=== PATIENT | female | born 1960 | race Caucasian/White ===

== ENCOUNTER 2022-08-14 06:20 | Observation (INO) ==
--- NOTE | 2022-06-04 09:46 | PAT Medication Instructions ---
Medication Instructions Date of Service June 04, 2022 Home Medications acetaminophen 650 mg tablet,extended release (Tylenol Arthritis Pain) 650 mg PO Q12H cholecalciferol (vitamin D3) 125 mcg (5,000 unit) capsule 125 mcg PO QAM levothyroxine 175 mcg capsule 175 mcg PO QAM lisinopril 20 mg tablet 20 mg PO QAM multivitamin (Daily Multi-Vitamin tablet) 1 tab PO QAM tramadol 50 mg tablet 50 mg PO Q8H PRN Pain fluoxetine 20 mg tablet 20 mg PO QAM gabapentin 300 mg tablet 300 mg PO TID DO NOT take the morning of surgery cholecalciferol (vitamin D3) 125 mcg (5,000 unit) capsule 125 mcg PO QAM lisinopril 20 mg tablet 20 mg PO QAM multivitamin (Daily Multi-Vitamin tablet) 1 tab PO QAM Take morning of surgery With a small sip of water, OTHERWISE NOTHING TO EAT OR DRINK AFTER MIDNIGHT: acetaminophen 650 mg tablet,extended release (Tylenol Arthritis Pain) 650 mg PO Q12H levothyroxine 175 mcg capsule 175 mcg PO QAM tramadol 50 mg tablet 50 mg PO Q8H PRN Pain (if needed) fluoxetine 20 mg tablet 20 mg PO QAM gabapentin 300 mg tablet 300 mg PO TID Take evening before surgery acetaminophen 650 mg tablet,extended release (Tylenol Arthritis Pain) 650 mg PO Q12H tramadol 50 mg tablet 50 mg PO Q8H PRN Pain (if needed) gabapentin 300 mg tablet 300 mg PO TID Other Notes If you have any questions please call us at [phone] or [phone] or [phone] or [phone]
--- NOTE | 2022-06-06 10:49 | Anesthesiology Consultation ---
Date of Service June 06, 2022 Assessment & Plan (1) Encounter for pre-operative examination: - awaiting PCP clearance. - lower respiratory tract infection 06/05/22: Rx Augmentin x 10 days by [facility] PCP, to f/u 06/12/22. Pt states was also prescribed amoxicillin recently for root canal and is now just taking Augmentin. She was instructed to notify surgeon's office of recent dental procedure and will need PCP clearance prior to surgery. CXR finalized after PAT appt and demonstrates bilateral hilar enlargement, per [facility] records, plan is to obtain chest CT. Surgeon's office made aware. - Outpatient joint assessment: Patient is currently scheduled for inpatient pathway. If re-evaluated pending system levels during current pandemic/surgeon requests outpatient pathway, patient is not acceptable candidate for outpatient joint program from anesthesia standpoint. Chart Review Chart Review: Pending: Refer to Additional Notes / Consult section and Patient seen in Pre Admission Testing Teaching & Discussion Pre-Anesthesia Teaching/Discussion Notes: Instructed NPO after midnight before surgery, except medications with 15 cc of water. Medication instructions provided according to the PAT guidelines. History Surgery Operation Date: 06/25/22 10:40 Proposed Procedures p Right Total Knee Replacement - Quincy Wright MD Height/Weight Height: 5 ft 1 in Weight: 131.542 kg Allergies Allergy/AdvReac Type Severity Reaction Status Date / Time No Known Allergies Allergy Verified 06/04/22 08:35 Medications Home Medications Medication Instructions Recorded Confirmed Last Taken acetaminophen 650 mg 650 mg PO Q12H 10/11/21 06/04/22 Unknown tablet,extended release (Tylenol Arthritis Pain) cholecalciferol (vitamin D3) 125 125 mcg PO QAM 10/11/21 06/04/22 Unknown mcg (5,000 unit) capsule levothyroxine 175 mcg capsule 175 mcg PO QAM 10/11/21 06/04/22 Unknown lisinopril 20 mg tablet 20 mg PO QAM 10/11/21 06/04/22 Unknown multivitamin (Daily Multi-Vitamin 1 tab PO QAM 10/11/21 06/04/22 Unknown tablet) tramadol 50 mg tablet 50 mg PO Q8H PRN Pain 10/11/21 06/04/22 Unknown fluoxetine 20 mg tablet 20 mg PO QAM 06/04/22 06/04/22 Unknown amoxicillin 875 mg-potassium 1 tab PO BID 06/06/22 06/06/22 Unknown clavulanate 125 mg tablet pregabalin 50 mg capsule 50 mg PO BID 06/06/22 06/06/22 Unknown Past Medical History Medical History (Updated 06/06/22 @ 11:24 by Wendy Ragland PA-C) Fatty liver History of anemia follows w/ [facility]- has had blood and iron transfusions in the past- last issue 01/2022- recent H&H wnl (05/2022) History of COVID-19 04/2020 loss of taste and smell, fatigue; no hospitalization, no current issues Hot flash, menopausal takes fluoxetine for symptoms Hypertension controlled, stable per pt Hypothyroidism Nausea and vomiting after administration of anesthetic agent denies needing scop patch Thyroid cancer 2015- radioactive therapy Patient denies h/o stroke, seizures, heart attack, heart failure, DM, or blood clots. Exercise / Class Metabolic Activity III < 4 Walking/Shop/Light housework (mild shortness of breath with usual activities due to pain per pt; ongoing x 6-8 months correlating to knee dysfunction/anemia per pt; denies change or worsening; denies chest discomfort) Past Family History Family History Other Diabetes No family history of adverse response to anesthesia Past Surgical History Surgical History History of delivery History of esophagogastroduodenoscopy (EGD) History of oophorectomy History of open reduction and internal fixation (ORIF) procedure right foot 2011 History of tonsillectomy Hx of colonoscopy Hx of eye surgery x 3- for hemangioma- 1959' Hx of thyroidectomy Past Anesthesia History No Hx of Anesthesia Complications and No Family Hx of Anesthesia Complications History of PONV History of PONV (after , denies needing scop patch) and Hx of Motion Sickness Social History Smoking Status: Never smoker Do You Dip or Chew Tobacco: No Hx Alcohol Use: No Hx Substance Use: No substance use type: does not use Review of Systems Snoring, denies witnessed apneas. Nonproductive cough throughout winter with wood stove per pt; denies change or worsening. Patient denies chest pain, reflux, fever, chills, wheezing, or palpitations. Physical Exam Vital Signs Vitals BP 108/69 P 75 TEMP 98.5 SP02 95% on RA RESP 18 Physical Full cervical extension range of motion without pain TMD 3.5 finger breadths Mallampati Score 2 Dentition: several crowns, denies chipped or loose teeth, implants or bridges Lungs: normal respiratory effort. Clear throughout to auscultation, no adventitious breath sounds Cardiac: regular rate and rhythm, no murmurs noted Carotid arteries: negative bruit bilat Lab Results Anesthesia Preop Results Results Anesthesia Widget: Na 138 mmol/L (136-145) 06/06/22 K 4.7 mmol/L (3.5-5.1) 06/06/22 Cl 101 mmol/L (98-107) 06/06/22 CO2 31 mmol/L (21-32) 06/06/22 BUN 18 mg/dl (6-23) 06/06/22 Creat 0.70 mg/dl (0.6-1.2) 06/06/22 Glucose Level 91 mg/dl (70-99(Fasting)) 06/06/22 PT 10.8 Seconds (9.0-12.0) 06/06/22 PTT 32.2 Seconds (21.0-31.0) H 06/06/22 INR 1.0 (0.9-1.1) 06/06/22 Blood Type O Positive 06/06/22 Antibody Screen NEGATIVE 06/06/22 Testing Laboratory Results 06/05/2022 WBC: 9 H/H: 12/40 PLATELETS: 403 A1c: 6.1% Electrocardiogram Date: 06/06/22 NSR, rate 73 bpm Chest X-Ray Date: 06/05/[address] chest is recommended. Other Testing CT abdomen pelvis 01/14/22 No acute findings Hepatomegaly and fatty infiltration of the liver Degenerative changes of the spine and scoliosis, without acute osseous abnormality COVID-19 Risk Screen Screening Information COVID-19 Screen Date: 06/06/22 Exposure 21 Days Family/Household +COVID Last 21 Days: No Exposure 10 Days Any COVID Exposure Last 10 Days: No Symptoms Last 10 Days Experienced COVID Sx Last 10 Days: No + COVID 0-90 Days COVID + in Last 0-90 Days: No
--- NOTE | 2022-08-10 09:36 | History and Physical Report ---
CHIEF COMPLAINT: Bilateral knee pain and discomfort, right side greater than left. 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 She has got a long history of ashley ateral knee pain and discomfort that has gradually gotten worse over the years. She has been through considerable conservative treatment including injections and weight loss, which has not been success ful. She has had some problems with anemia due to NSAID use and has therefore limited her management . Knees continue to bother her. They hurt her all of the time. She is having trouble getting aroun d and doing her job. She would like to consider surgery. She is still attempting to lose weight, bu t having trouble doing this due to her limited mobility. She has been scheduled for knee replacement in the past, but had to be canceled due to some pulmonary issues. She had a workup, which suggested a possible disease. She has had a chest CT and a biopsy, which shows granulomatous disease. She has been managed for sarcoidosis. No other complaints. PAST MEDICAL HISTORY: 1. History of thyroid cancer, status post removal. 2. Hypertension. 3. Obesity, BMI of 56. 4. Sarcoidosis. PAST SURGICAL HISTORY: Includes: 1. Hemangioma removed from the eyelid. 2. Thyroid cancer removal. 3. Tonsillectomy. 4. Oophorectomy. 5. . ALLERGIES: None. CURRENT MEDICATIONS: Include: 1. Tramadol. 2. Lisinopril. 3. Meloxicam. 4. Levothyroxine. 5. Vitamin D. 6. Multivitamin. 7. Aleve. 8. Tylenol. 9. Vitamin B12. SOCIAL HISTORY: A 61-year-old female. She is from [place]. Lives with her domestic partner. On e child. Rare alcohol intake. FAMILY HISTORY: Significant for diabetes, breast cancer, throat cancer, prostate cancer. REVIEW OF SYSTEMS: Significant for obesity. She has got multiple musculoskeletal aches and pains. Has a history of thyroid cancer, status post resection. Relatively newly diagnosed granulomatous dis ease/sarcoidosis. PHYSICAL EXAMINATION: GENERAL: Shows a pleasant middle-aged female, looks in reasonably good health. HEENT: Benign. NECK: Supple. No lymphadenopathy. LUNGS: Clear to auscultation. HEART: Regular rate and rhythm. ABDOMEN: Soft, nontender, nondistended. EXTREMITIES: Grossly neurovascularly intact except as follows. Examination of both knees reveals the patient walks with a little bit of waddling gait. She has mode rate to large soft tissue envelope bilaterally. Examination of the right knee reveals fairly neutral alignment. Range of motion 5-120. No instability. No pain with hip motion. Examination of left k nee reveals fairly neutral alignment. A large soft tissue envelope. A minimal knee effusion. Range of motion 5-120. No instability. X-RAYS: X-rays of both knees reveal advanced bilateral knee DJD. She has got complete loss of media l joint space on both sides. A little bit of tibial femoral subluxation. Osteophytes in all 3 vishnu rtments. 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 Recently diagnosed with granulomatous/sarcoid disease. She would like to consider knee s urgery. PLAN: We are going to proceed with right knee replacement. I did tell her emphatically that her siz e and age that she is at increased risk for problems including infection and blood clots and she is a cain of this. Her knees may need to be revised in the future, she is also aware of this. Risks and benefits of total knee replacement were explained and we will proceed with right knee replacement. S he is hoping to be discharged to either rehab or home with home health. We will see how she does in the hospital. We will use aspirin for DVT prophylaxis. We will likely use the Vanguard tibial compo nent to maximize her stability of the tibia. Job ID: [id number]
[~2022-08-14 06:20] MED LIST: ACETAMINOPHEN 500 MG TAB PO SCH; BUPIVACAINE LIPOSOME/PF 266 MG, BUPIVACAINE/EPINEPHRINE 50 ML, SODIUM CHLORIDE 0.9% PF ... INFIL SCH; CeleBREX 200 MG CAP PO SCH; FAMOTIDINE 20 MG TAB PO SCH; LR 500ML BOLUS, THEN 15ML/HR IV SCH; LR 60ML/HR IV SCH; METOCLOPRAMIDE HCL 10 MG TABLET PO SCH; Scopolamine 1 MG TDSY TD SCH; TRANEXAMIC ACID 1,000 MG **IV Intra-op IV SCH; TRANEXAMIC ACID 1,000 MG **IV Pre-op IV SCH
[2022-08-14] MEDS ORDERED: BUPIVACAINE 0.5 % 5 MG/1 ML PF 10ML VIAL ONE (06:29)
[2022-08-14] MEDS ORDERED: EPINEPHrine INJ 1 MG/ML AMP ONE (06:29)
[2022-08-14] MEDS ORDERED: ROPIVACAINE 0.5% 5 MG/ML 30 ML VIAL ONE (06:29)
--- NOTE | 2022-08-14 06:58 | History & Physical Bridge Note ---
Date of Service August 14, 2022 History & Physical Bridge Note I have examined the patient, reviewed the History & Physical and in the interval since the performance of the History & Physical I have noted the following changes of clinical significance: no changes noted
[2022-08-14] MEDS ORDERED: MIDAZOLAM HCL 1 MG/ML 2ML VIAL ONE (07:20)
[2022-08-14] MEDS ORDERED: fentaNYL citrate PF 100 MCG/2 ML VIAL ONE (07:20)
[2022-08-14] MEDS ORDERED: SODIUM CHLORIDE 0.9% PF 50 ML VIAL ONE (09:15)
[2022-08-14] MEDS ORDERED: BUPIVACAINE/EPINEPHRINE 0.25% 1:200,000 30 ML VIAL ONE (09:15)
[2022-08-14] MEDS ORDERED: BUPIVACAINE LIPOSOME 1.3% 266 MG/20 ML VIAL ONE (09:16)
[2022-08-14] MEDS ORDERED: DEXAMETHASONE SOD INJ 4 MG/ML VIAL ONE (09:27)
[2022-08-14] MEDS ORDERED: ATROPINE SULFATE 0.1 MG/ML 10ML SYR IV PRN ×2 (09:27→13:18)
[2022-08-14] MEDS ORDERED: ePHEDrine sulfate 50 MG/ML AMP IV PRN ×2 (09:27→13:18)
[2022-08-14] MEDS ORDERED: KETOROLAC 30 MG/ML VIAL ONE (09:27)
[2022-08-14] MEDS ORDERED: ONDANSETRON INJ 2 MG/ML 2 ML VIAL ONE (09:27)
[2022-08-14] MEDS ORDERED: PROPOFOL IV EMULSION 10 MG/ML 20 ML VIAL IV ONE ×3 (09:27→10:45)
[2022-08-14] MEDS ORDERED: PHENYLEPHRINE 100MCG/ML 5ML SYR ONE (09:30)
[2022-08-14] MEDS ORDERED: GLYCOPYRROLATE 0.2 MG/ML VIAL ONE (09:30)
[2022-08-14] MEDS ORDERED: ePHEDrine sulfate 50 MG/ML SYR ONE (09:30)
[2022-08-14] MEDS ORDERED: VANCOMYCIN HCL 1000MG/20ML VIAL ONE (09:31)
[2022-08-14] MEDS ORDERED: METOCLOPRAMIDE HCL INJ 5 MG/ML 2 ML VIAL ONE (09:35)
--- NOTE | 2022-08-14 11:35 | Operative Report ---
PG Post Operative Report Pre & Post Diagnosis Operation Date: 08/14/22 08:50 Pre-Op Diagnosis: Right Knee Osteoarthritis Post-Op Diagnosis: Right Knee Osteoarthritis I identified the patient and participated in the time-out.: Yes Procedure Operation Date: 08/14/22 08:50 Actual Procedures p Right Total Knee Replacement(Right) - Quincy rWight MD Surgeon Quincy Wright MD Supervisor Tower John Burgos PA-C Estimated Blood Loss 50 Findings Consistent with Post-Op Diagnosis Operative findings were advanced right knee tricompartment DJD. She had extensive grade 4 [id number] disease in all 3 compartments. Very large soft tissue envelope with morbid obesity. Specimens Right knee sent for pathology Anesthesia Type Spinal MAC Complications none Disposition Accompanied Patient To Recovery: No Indications Patient 61-year-old morbidly obese female said a long history of bilateral knee pain discomfort right side bit worse than left. She been through extensive conservative treatment which became less successful over time. She is attempted weight loss for several years with minimal success somewhat due to her limited mobility. X-rays show advanced knee DJD. As she was strongly desiring total knee arthroplasty. Description of Procedure Operative implants consist of: 1. Biomet Vanguard size 67.5 right posterior stabilized femoral component. 2. Biomet size 71 tibial tray with a 14 x 80 mm stem with a 5 mm offset and a small cruciate wing. 3. 10 mm posterior stabilized polyethylene insert. 4. 28 x 8 all poly patella. The patient was taken to the operating, identified, placed on the operating table supine position protectors were properly padded. IV antibiotics tried by anesthesia team. A spinal anesthetic and been implemented in the holding area. A Mathis catheter was placed in sterile fashion. Right Tetrick was then placed in the right lower extremities and prepped draped in usual sterile fashion. The right leg was elevated exsanguinated with use of an Esmarch and the tourniquet was placed at 350 mmHg. An anterior pressure of the right knee was then performed to longitudinal incision centered over the patella. Sharp dissection was carried through subcutaneous tissue down the extensor mechanism. A medial parapatellar throb incision was made. Some subperiosteal dissection was carried out medially. Fat pad was resected from Neath patella tendon. The lateral patellofemoral ligament was released. Patella subluxated laterally and the knee was flexed with the osteophytes taken off distal femur. ACL PCL were released from the distal femur and the tibia subluxated anteriorly. I then resected the tibial eminence. The intramedullary canal was entered with the canal finder and then reamed up to a size 14. With the reamer in place and use this for the cutting guide. The tibial cutting guide was attached to the reamer and the tibia was cut to remove the millimeter bone from the most deficient aspect medial tibial plateau. The tibia was sized to a size 71. Was prepared for 5 mm offset stem with a small cruciate wing. The trial implant was assembled and placed. Attention drawn the femur. The distal femur during the sharp drop with intramedullary canal was suction. A right 5 degree valgus cutting guide was placed. This femoral cutting block was pinned in place. Distal femoral cut was made to take an additional 3 mm bone off distal femur. The femur was then sized to a size 67.5. Recent downsize was just slightly. The AP cutting block was pinned parallel to the epicondylar axis which was 3 degrees of external rotation. Anterior cut, anterior chamfer, posterior cut, posterior chamfer cuts were made for the box cutting guide was placed in the just slight lateral box cut was made. The knee was flexed. The remnants of the medial lateral menisci were excised. The some large osteophytes posteriorly were removed. Trial femoral component was placed. The knee was then trialed and 10 mm insert fit most appropriately. Attention drawn the patella. The patella was cleaned of all soft tissues. Patella thickness measured 19 mm in thickness was cut down to 13. Was sized to a size 28 patella. The locals were drilled for the 28 patella. Lateral osteophytes removed. Patella button was placed. Knee was taken through range of motion and the patella tracked well within no thumbs test. Attention drawn to placing permanent components. Nupathe all trial components were removed. Bone plug was placed in the distal femur limit blood loss. Double batch Palacos G cement was mixed. I did add an additional gram of vancomycin due to her morbid obesity and increased risk for infection. A 67.5 right posterior stabilized femoral component was then cemented in place followed by the 71 mm tray with the 14 x 8 mm offset stem, 10 mm posterior stabilized polyethylene insert, and 28 x 8 all poly patella. The knee was brought out into full extension till cement hardened. Final cement check was then performed. Pericapsular tissues were injected with total 100 cc of combination of 20 cc Exparel, 30 cc normal saline, 50 cc of quarter percent Marcaine with epinephrine. Patient did receive 1 g tranexamic acid. The tourniquet was let down for final turn time 70 minutes for hemostasis reduced electrocautery. The extensor mechanism closed with combination 1 PDS suture #1 Vicryl suture in [id number] fashion. The extensor mechanism checked found intact the subcutaneous tissue then closed with 2 Dexon suture in buried fashion skin was closed skin marcelo. Leg was then cleaned and dried and sterile dressed with Xeroform, 4 fours, sterile cast padding, Abe bandage were applied. The patient then transferred to the recovery room in stable condition. Patient tolerated the procedure well and there were no complications. John Burgos, my physician certified medical assistant, was present for the entire procedure. His assistance was essential and required for appropriate patient positioning, prepping and draping, surgical exposure, performing the technical details of the operation, placement the implants, closure of the wound, and placement of the sterile bandage. I attest to the content of the Intraoperative Record and any orders documented therein. Any exceptions are noted below.
--- NOTE | 2022-08-14 12:11 | XRay Report ---
XR knee RT 1 or 2V routine CLINICAL HISTORY: Surgical Post Op TECHNIQUE: 2 views of the right knee were obtained. Comparison: Comparison is made to knee radiograph 05/02/2022 FINDINGS: Patient is status post total knee arthroplasty with expected postsurgical changes including soft tiss ue swelling and subcutaneous emphysema. No periarticular lucency or hardware fracture is seen. IMPRESSION: Expected postoperative appearance status post placement of total knee arthroplasty. ACT 112: Negative or not required by law. Electronically signed by: Jace Molina M.D. 08/14/2022 12:10 PM
--- NOTE | 2022-08-14 12:30 | Anesthesiology Progress Note ---
Date of Service August 14, 2022 Anesthesia Post Procedure Vital Signs Vital Signs: Temp Pulse Pulse Resp BP Pulse Ox O2 Del Method 08/14/22 12:20 87 18 143/90 H 94 Room Air 08/14/22 12:10 80 18 137/72 94 Room Air 08/14/22 12:00 36.6 C 81 20 127/59 L 95 Room Air 08/14/22 11:50 79 20 135/73 95 Room Air 08/14/22 11:40 80 19 114/65 99 Oxymask 08/14/22 11:30 36.5 C 83 14 115/68 96 Oxymask 08/14/22 06:53 36.7 C 72 16 133/77 96 Room Air O2 Flow Rate 08/14/22 12:20 08/14/22 12:10 08/14/22 12:00 08/14/22 11:50 08/14/22 11:40 4 08/14/22 11:30 6 08/14/22 06:53 Pain Intensity Right Knee: Pain Intensity: 5 Transfer of Care Handoff Completed per policy Notes Mental Status: alert / awake / arousable Patient Amnestic to Procedure: Yes Nausea / Vomiting: adequately controlled Pain: adequately controlled Airway Patency, RR, SpO2: stable & adequate BP & HR: stable & adequate Hydration State: stable & adequate Neuraxial Anesthesia: was administered and sensory block is resolving Anesthetic Complications: no major complications apparent
[2022-08-14] MEDS ORDERED: diphenhydrAMINE Capsule 25 MG CAP PO PRN (13:07)
[2022-08-14] MEDS ORDERED: NALOXONE HCL 0.4 MG/1 ML VIAL/CARP IV PRN (13:07)
[2022-08-14] MEDS ORDERED: MAGNESIUM HYDROXIDE SUSP 30 ML UDC PO PRN (13:07)
[2022-08-14] MEDS ORDERED: METOCLOPRAMIDE HCL INJ 5 MG/ML 2 ML VIAL IV PRN (13:07)
[2022-08-14] MEDS ORDERED: ONDANSETRON INJ 2 MG/ML 2 ML VIAL IV PRN (13:07)
[2022-08-14] MEDS ORDERED: bisacodyL 10 MG SUPP PR PRN (13:07)
[2022-08-14] MEDS ORDERED: ALUMINUM/MAGNESIUM SUSP 30 ML UDC PO PRN (13:07)
[2022-08-14] MEDS ORDERED: HYDROmorphone INJ 0.5 MG/0.5 ML SYR IV PRN (13:07)
[2022-08-14] MEDS: ACETAMINOPHEN 500 MG TAB PO SCH ×2 (13:54→20:25)
[2022-08-14] MEDS: SODIUM CHLORIDE 0.9% 1000ML 1,000 ML IV SCH ×2 (13:54→23:49)
[2022-08-14] MEDS: ASCORBIC ACID 500 MG TAB PO SCH (16:05)
[2022-08-14] MEDS: KETOROLAC 30 MG/ML VIAL IV SCH ×2 (16:05→22:02)
[2022-08-14] MEDS: ceFAZolin 2000MG 2,000 MG/15 ML SYR IV SCH (16:05)
[2022-08-14] MEDS: Scopolamine CHECK PATCH PLACEMENT SCH (16:06)
[2022-08-14] MEDS ORDERED: TRANEXAMIC ACID / 0.7% NACL 1,000 MG/100 ML BAG IV SCH (18:00)
[2022-08-14] MEDS: SENNA 8.6 MG TAB PO SCH (20:25)
[2022-08-14] MEDS: oxyCODONE HCL IR 5 MG TAB (IMMEDIATE RELEASE) PO PRN (20:25)
[2022-08-14] MEDS: ASPIRIN 81 MG ECTAB PO SCH (20:25)
[2022-08-14] MEDS: PREGABALIN 50 MG CAP PO SCH (20:25)
[2022-08-14] MEDS: DOCUSATE SODIUM 100 MG CAP PO SCH (20:25)
[2022-08-14] MEDS ORDERED: SENNA 8.6 MG TAB PO SCH (21:00)
[2022-08-15] MEDS: oxyCODONE HCL IR 5 MG TAB (IMMEDIATE RELEASE) PO PRN ×2 (01:16→11:05)
[2022-08-15] MEDS: ceFAZolin 2000MG 2,000 MG/15 ML SYR IV SCH (01:16)
[2022-08-15] MEDS: Scopolamine CHECK PATCH PLACEMENT SCH ×2 (01:17→08:34)
[2022-08-15] MEDS: KETOROLAC 30 MG/ML VIAL IV SCH ×2 (04:06→10:09)
[2022-08-15 06:19] LABS: Hematocrit (blood only) 29.7 % (37.0-47.0); Hemoglobin 9.7 g/dl (12.0-16.0); Mean Corpuscular Hemoglobin 28.2 pg (25.0-34.0); Mean Corpuscular Hgb Conc 32.7 g/dL (32.0-36.0); Mean Corpuscular Volume 86.3 fL (80.0-100.0); Mean Platelet Volume 10.3 fL (9.4-12.4); Platelet Count 323 K/uL (130-400); RDW Coefficient of Variation 15.5 % (11.5-14.5); RDW Standard Deviation 49.1 fL (36.4-46.3); Red Blood Count 3.44 M/uL (4.20-5.40); White Blood Count 10.92 K/ul (4.8-10.8)
[2022-08-15] MEDS ORDERED: LEVOTHYROXINE SODIUM 175 MCG TABLET PO SCH (06:30)
[2022-08-15 06:34] LABS: BUN Creatinine Ratio 23.1 (10-20); Calcium 8.3 mg/dl (8.6-10.3); Creatinine Clr Calc Pharmacy 83.1 ml/min; Est GFR (African American) 78.9 ml/min; Est GFR (Non-African American) 68.1 ml/min; Potassium 4.3 mmol/L (3.5-5.1)
--- NOTE | 2022-08-15 07:57 | Progress Notes ---
DATE OF SERVICE: 08/15/2022. SUBJECTIVE: A 61-year-old white female postoperative day 1 from right knee replacement. She is doin g pretty well. Her pain is controlled. No chest pain or shortness of breath. Not feeling dizzy or lightheaded. She is hoping to go home today. OBJECTIVE: VITAL SIGNS: Temperature 36.7. Vital signs are stable. GENERAL: Shows a pleasant middle-aged female. She is sitting up on her bedside chair, looks pretty good this morning. Looks comfortable. LUNGS: Clear to auscultation. HEART: Regular rate and rhythm. ABDOMEN: Soft, nontender, nondistended. EXTREMITIES: Grossly neurovascularly intact except as follows. Examination of the right leg reveals the dressing to be clean, dry and intact. Leg is well aligned. Very large soft tissue envelope. The patient can dorsiflex and plantarflex her foot appropriately. LABORATORY DATA: Hemoglobin 9.7. Hematocrit 29.7. Electrolytes are stable. ASSESSMENT: A 61-year-old white female postoperative day 1 from right knee replacement, doing well. Pain is controlled. She is neurologically intact. PLAN: 1. DVT prophylaxis includes thigh-high TEDs, SCDs, and aspirin twice a day. 2. PT/OT, weightbear as tolerated. Right total knee protocol. 3. Pain control, doing okay with current pain regimen. 4. Disposition: Plan to discharge to home with some home health likely later today if does okay in therapy. Job ID: [id number]
[2022-08-15] MEDS ORDERED: dexAMETHasone 10 MG in SYRINGE 0 ML IV SCH (08:00)
[2022-08-15] MEDS: PREGABALIN 50 MG CAP PO SCH (08:34)
[2022-08-15] MEDS: ACETAMINOPHEN 500 MG TAB PO SCH (08:34)
[2022-08-15] MEDS: ASCORBIC ACID 500 MG TAB PO SCH (08:34)
[2022-08-15] MEDS: SENNA 8.6 MG TAB PO SCH (08:36)
[2022-08-15] MEDS: DOCUSATE SODIUM 100 MG CAP PO SCH (08:36)
[2022-08-15] MEDS ORDERED: lisinopril 20 MG TAB PO SCH (09:00)
[2022-08-15] MEDS ORDERED: CHOLECALCIFEROL 5,000 UNITS 125 MCG TAB PO SCH (09:00)
[2022-08-15] MEDS ORDERED: NON-FORMULARY MEDICATION (Multivitamin [Daily Multi-Vitamin] tablet) PO SCH (09:00)
[2022-08-15] MEDS ORDERED: MULTIVITAMIN TAB PO SCH (09:00)
[2022-08-15] MEDS ORDERED: FLUoxetine HCL 20 MG CAP PO SCH (09:00)
[2022-08-15] MEDS: ASPIRIN 81 MG ECTAB PO SCH (09:07)
--- NOTE | 2022-08-22 07:47 | Discharge Summary ---
Date of Service August 22, 2022 Discharge Data Procedures Performed Operation Date: 08/14/22 08:50 Actual Procedures p Right Total Knee Replacement(Right) - Quincy Wright MD Hospital Course (1) Status post total right knee replacement: This is a 61 year old patient admitted on 08/14/22 and underwent total knee arthroplasty. She tolerated the procedure well and there were no complications. Transferred to the PACU post op and later to the orthopedic floor for further care. She was given ancef for antibiotic prophylaxis. She was also given LORNA stockings, SCDs, and aspirin for DVT prophylaxis. Hemoglobin, hematocrit, and vital signs were monitored during her hospital stay and remained stable. Did not require any blood transfusions. There were no complications during her hospital stay. By post op day #1 the patient was tolerating a regular diet, pain was reasonably controlled with oral pain medicine, and she was participating in physical therapy. On post op day #1 the patient was discharged home and set up with home health care. She was given printed discharge instructions including prescriptions for extra strength tylenol, aspirin, ketorolac, cefadroxil, zofran, senokot, and oxycodone. Continue physical therapy, weight bearing as tolerated. Continue LORNA stockings. Follow up approximately 2 weeks post op or sooner if there are problems or concerns. Coding Level of Care Code None Diagnoses Status post total right knee replacement Z96.651
== END 2022-08-15 11:15 | disposition home health service (06) ==
LOC: 3E 06:20 → ASU 06:20

== ENCOUNTER 2022-11-12 08:15 | Observation (INO) ==
--- NOTE | 2022-10-29 12:51 | History & Physical Report ---
Date of Service October 29, 2022 Assessment & Plan (1) Status post total right knee replacement: (2) Bilateral primary osteoarthritis of knee: The patient is recovered unremarkably well from her right knee replacement now limited by left knee pain discomfort. She has failed conservative measures. She is hoping to have her left knee replaced. We will proceed with a right total knee replacement. The risk meant this procedure explained the patient including not limited to DVT PE infection neurological and vascular bleeding palm pain limb range of motion this is fairly of symptoms incomplete relief of symptoms need for further surgery in future exceptor. Patient understands and desires to proceed. Informed consent was obtained. Will likely put a stem in her tibia similar to the other side. She is planned to be discharged to home using home health. We will plan on aspirin for DVT prophylaxis. History of Present Illness Chief Complaint: . Left knee pain and discomfort Primary Care Provider: Maria Dolores Caldera PA-C . 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 She has a long history of knee problems and had her right right knee replaced just about 3 months ago. She done remarkably well from this. It is helped her significantly. She been through extensive conservative treatment now limited by left knee pain and discomfort. She uses a cane to ambulate because of her left knee. She would like to have her left knee fixed. Of note, the patient is attempted to lose weight but unsuccessful due to her limited mobility. She does have chronic anemia and cannot take NSAIDs. Allergies Allergy/AdvReac Type Severity Reaction Status Date / Time No Known Allergies Allergy Verified 08/30/22 11:35 Home Medications Medication Instructions Recorded Confirmed Type cholecalciferol (vitamin D3) 125 125 mcg PO QAM 10/11/21 08/30/22 History mcg (5,000 unit) capsule levothyroxine 175 mcg capsule 175 mcg PO QAM 10/11/21 08/30/22 History lisinopril 20 mg tablet 20 mg PO QAM 10/11/21 08/30/22 History multivitamin (Daily Multi-Vitamin 1 tab PO QAM 10/11/21 08/30/22 History tablet) fluoxetine 20 mg tablet 20 mg PO QAM 06/04/22 08/30/22 History amoxicillin 875 mg-potassium 1 tab PO BID 06/06/22 08/30/22 History clavulanate 125 mg tablet pregabalin 50 mg capsule 50 mg PO BID 06/06/22 08/30/22 History acetaminophen 500 mg tablet 1,000 mg PO TID pain 30 days #180 08/12/22 08/30/22 Rx (Tylenol Extra Strength) tabs aspirin 81 mg tablet,delayed 81 mg PO BID 45 days #90 tabs 08/12/22 08/30/22 Rx release (Mina Low Dose Aspirin) cefadroxil 500 mg capsule 500 mg PO BID 7 days #14 caps 08/12/22 08/30/22 Rx ketorolac 10 mg tablet 10 mg PO Q6 pain 5 days #20 tabs 08/12/22 08/30/22 Rx ondansetron 4 mg disintegrating 4 mg PO Q8 PRN nausea #20 tabs 08/12/22 08/30/22 Rx tablet sennosides 8.6 mg tablet (Senokot) 8.6 mg PO BID prevent constipation 08/12/22 08/30/22 Rx 14 days #28 tabs oxycodone 5 mg tablet 5 - 10 mg PO Q6 PRN pain #40 tabs 08/30/22 Rx Past Med/Surg History Medical History Encounter for pre-operative examination Fatty liver History of anemia follows w/ [facility]- has had blood and iron transfusions in the past- last issue 01/2022- recent H&H wnl (05/2022) History of COVID-19 04/2020 loss of taste and smell, fatigue; no hospitalization, no current issues Hot flash, menopausal takes fluoxetine for symptoms Hypertension controlled, stable per pt Hypothyroidism Nausea and vomiting after administration of anesthetic agent denies needing scop patch Thyroid cancer 2016- radioactive therapy Surgical History History of delivery History of esophagogastroduodenoscopy (EGD) History of oophorectomy History of open reduction and internal fixation (ORIF) procedure right foot 2011 History of tonsillectomy Hx of colonoscopy Hx of eye surgery x 3- for hemangioma- 1959's Hx of thyroidectomy Family History Other Diabetes No family history of adverse response to anesthesia Social History Smoking Status: Never smoker Second Hand Exposure: No; Do You Dip or Chew Tobacco: No; Hx Alcohol Use: No Hx Substance Use: No Preferred Language: Indonesian Communication Ability: Effective Office Engineer Required: No Beliefs That Will Affect Care: None marital status details: DOMESTIC PARTNER Current Living Situation: Spouse current occupational status: employed 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 Physical Exam . Physical examination reveals an obese middle-aged female. Looks in r easonably good health. Examination of both knee reveals patient walks with use of a cane. Walks with a bit of a waddling gait. Examination of the left knee reveals a large soft tissue envelope. Slight varus alignment to her knee. Range of motion about 5 degrees of full extension to 110 degrees of flexion. No instability. No pain with hip motion. Examination of the right knee reveals a well-healed incision. She got anatomic alignment to the knee. Range of motion 0-1 10-1 15. Good straight leg raise. Constitutional WD/WN, vitals as above Neck trachea midline, no thyromegaly Respiratory normal respiratory effort, lungs clear to auscultation Cardiovascular RRR, no murmur, no edema Gastrointestinal (Abdomen) normal bowel sounds, soft, nontender, no hepatosplenomegaly Results & Data Results & Data Laboratory Results . Diagnostic Findings . X-rays of both knees reveals advanced left knee DJD. She is got complete loss of medial joint space. She got tibiofemoral subluxation. She got destruction of the proximal tibia. X-rays of the right knee reveal well-positioned total knee replacement. No problems. PG Care Time/CCT Total # of Minutes Spent Total Time Spent with Patient: Total time spent is greater than 50% in coordination of care (as documented) at patient's floor/unit and/or counseling patient: Coding Level of Care Code None Diagnoses Status post total right knee replacement Z96.651 Bilateral primary osteoarthritis of knee M17.0
--- NOTE | 2022-11-04 09:18 | Anesthesiology Consultation ---
Date of Service November 04, 2022 Assessment & Plan (1) Encounter for pre-operative examination: - COVID screening: Per assessment on 10/30: No known COVID-19 positive contacts or current COVID-19 related symptoms. Travel screen negative. Patient vaccinated. At surgeon discretion if preop Covid testing being done. - Outpatient joint assessment: Pt currently scheduled for inpatient pathway. If surgeon requests review for outpatient joint pathway, patient is not recommended candidate for outpatient joint program from anesthesia standpoint. - PCP visit 08/07/22: Visit prior to Right TKA performed 08/14/22 at [facility] > "...labs reviewed. no medical contraindication for the proposed surgery and anesthesia...total right knee replacement...recent bronchoscopy revealed granulomatous inflammation...has been referred to sarcoidosis clinic..." - S/P Right TKA (08/14/22): SAB at L3-4 (x1 attempt) + PNB at [facility]. No issues noted per post-op anesthesia progress note. Chart Review Chart Review: Acceptable Risk for Surgery and Patient NOT seen in Pre Admission Testing History Surgery Operation Date: 11/12/22 07:00 Proposed Procedures p Left Total Knee Arthroplasty - Quincy Wright MD Height/Weight Height: 5 ft 1 in Weight: 131.542 kg Allergies Allergy/AdvReac Type Severity Reaction Status Date / Time No Known Allergies Allergy Verified 10/30/22 13:05 Medications Home Medications Medication Instructions Recorded Confirmed Last Taken cholecalciferol (vitamin D3) 125 125 mcg PO QAM 10/11/21 10/30/22 08/11/22 mcg (5,000 unit) capsule levothyroxine 175 mcg capsule 175 mcg PO QAM 10/11/21 10/30/22 08/14/22 02:00 lisinopril 20 mg tablet 20 mg PO QAM 10/11/21 10/30/22 08/14/22 04:00 multivitamin (Daily Multi-Vitamin 1 tab PO QAM 10/11/21 10/30/22 08/11/22 tablet) fluoxetine 20 mg tablet 20 mg PO QAM 06/04/22 10/30/22 08/13/22 08:00 pregabalin 50 mg capsule 50 mg PO BID 06/06/22 10/30/22 08/13/22 08:00 aspirin 81 mg tablet,delayed 81 mg PO BID 45 days #90 tabs 08/12/22 10/30/22 08/13/22 12:00 release (Mina Low Dose Aspirin) acetaminophen 500 mg tablet 1,000 mg PO BID PRN Pain 10/30/22 10/30/22 Unknown (Tylenol Extra Strength) tramadol 50 mg tablet 50 - 100 mg PO TID PRN Pain 10/30/22 10/30/22 Unknown Past Medical History Medical History (Updated 11/04/22 @ 09:16 by Kaylene Heller) Fatty liver History of anemia Follows w/ [facility] Has had blood and iron transfusions in the past- last issue 01/2022 History of COVID-19 04/2020 loss of taste and smell, fatigue > resolved Hot flash, menopausal takes fluoxetine for symptoms Hypertension controlled, stable per pt Hypothyroidism Morbid obesity Thyroid cancer 2016- radioactive therapy Past Family History Family History Other Diabetes No family history of adverse response to anesthesia Past Surgical History Surgical History History of delivery History of esophagogastroduodenoscopy (EGD) History of oophorectomy History of open reduction and internal fixation (ORIF) procedure right foot 2011 History of tonsillectomy Hx of colonoscopy Hx of eye surgery x 3- for hemangioma- Hx of thyroidectomy Nausea and vomiting after administration of anesthetic agent Status post right knee replacement 08/2022 at [facility] Social History Smoking Status: Never smoker Do You Dip or Chew Tobacco: No Hx Alcohol Use: No Hx Substance Use: No substance use type: does not use Testing Laboratory Results 11/02/22 WBC 7.01 H/H 11.8/38.4 PLATELETS 352 SODIUM 140 POTASSIUM 4.7 CHLORIDE 103 CO2 26 BUN 19 CREATININE 0.7 GLUCOSE 77 PT 13.8 PTT 36 INR 1.0 Electrocardiogram Date: 06/06/22 NSR, rate 73 bpm Chest X-Ray Date: 06/05/[address] chest is recommended. Chest CT Date: 06/11/22 Mediastinal and hilar lymphadenopathy which is new when compared to CT scan of the neck dated 01/25/2016 concerning for metastasis. Bilateral lung nodules. Consider short-term follow-up CT scan of the chest in 3-6 months.(as noted below- patient has since had bronchoscopy and has been referred to sarcoidosis clinic- was approved by PCP for surgery)
[~2022-11-12 08:15] MED LIST changes: -FAMOTIDINE 20 MG TAB PO SCH; +ROPIVACAINE 0.5% 5 MG/ML 30 ML VIAL ONE; -TRANEXAMIC ACID 1,000 MG **IV Pre-op IV SCH; +dexAMETHasone 4 MG TAB PO SCH
--- NOTE | 2022-11-12 08:28 | History & Physical Bridge Note ---
Date of Service November 12, 2022 History & Physical Bridge Note I have examined the patient, reviewed the History & Physical and in the interval since the performance of the History & Physical I have noted the following changes of clinical significance: no changes noted
[2022-11-12] MEDS: FAMOTIDINE 20 MG TAB PO SCH ×2 (08:56→08:57)
[2022-11-12] MEDS ORDERED: PROPOFOL IV EMULSION 10 MG/ML 20 ML VIAL IV ONE ×9 (09:24→13:19)
[2022-11-12] MEDS ORDERED: MIDAZOLAM HCL 1 MG/ML 2ML VIAL ONE ×2 (09:25→10:21)
[2022-11-12] MEDS ORDERED: ONDANSETRON INJ 2 MG/ML 2 ML VIAL IV PRN ×2 (09:55→14:45)
[2022-11-12] MEDS ORDERED: ePHEDrine sulfate 50 MG/ML AMP IV PRN (09:55)
[2022-11-12] MEDS ORDERED: ATROPINE SULFATE 0.1 MG/ML 10ML SYR IV PRN (09:55)
[2022-11-12] MEDS ORDERED: HYDROmorphone INJ 1 MG/ML SYRINGE IV PRN (09:55)
[2022-11-12] MEDS ORDERED: BUPIVACAINE/EPINEPHRINE 0.25% 1:200,000 30 ML VIAL ONE (10:48)
[2022-11-12] MEDS ORDERED: SODIUM CHLORIDE 0.9% PF 50 ML VIAL ONE (10:49)
[2022-11-12] MEDS ORDERED: BUPIVACAINE LIPOSOME 1.3% 266 MG/20 ML VIAL ONE (10:49)
[2022-11-12] MEDS ORDERED: VANCOMYCIN HCL 1000MG/20ML VIAL ONE (10:50)
[2022-11-12] MEDS ORDERED: ONDANSETRON INJ 2 MG/ML 2 ML VIAL ONE (12:45)
[2022-11-12] MEDS ORDERED: KETAMINE 50 MG/5 ML SYRINGE ONE (12:49)
[2022-11-12] MEDS ORDERED: GLYCOPYRROLATE 0.2 MG/ML VIAL ONE (12:57)
--- NOTE | 2022-11-12 13:47 | Operative Report ---
PG Post Operative Report Pre & Post Diagnosis Operation Date: 11/12/22 10:20 Pre-Op Diagnosis: Left Knee Degenerative Joint Disease Post-Op Diagnosis: Left Knee Degenerative Joint Disease I identified the patient and participated in the time-out.: Yes Procedure Operation Date: 11/12/22 10:20 Actual Procedures p Left Total Knee Arthroplasty(Left) - Quincy Wright MD Surgeon Quincy Wright MD [facility] John Burgos PA-C Estimated Blood Loss 100 Findings Consistent with Post-Op Diagnosis Operative findings revealed a morbidly obese patient with a very large soft tissue envelope. She had extensive grade 4 kiss-si-atfy disease in all 3 compartments. Osteophytes in all 3 compartments. Moderate-sized joint effusion. Specimens Left knee sent for pathology Anesthesia Type Spinal MAC Complications none Disposition Accompanied Patient To Recovery: No Indications Patient is a 61-year-old morbidly obese female with a long history of bilateral knee pain discomfort describes gotten worse over the past several years patient been to extensive conservative treatment without any success. She attempted weight loss without success. X-rays show severe arthritis. She underwent right knee replacement about 3 months ago and is done remarkably well. She is limited by left knee and she elected proceed with left total knee arthroplasty. Description of Procedure Operative implants consist of: 1. Biomet Vanguard size 65 left posterior stabilized femoral component. 2. Biomet size 71 tibial tray with a 80 x 12 mm stem, 5 mm offset, small cruciate wing. 3. 10 mm posterior stabilized polyethylene insert. 4. 28 x 8 all poly patella. The patient was taken the operating, identified, placed on the operating table supine position protectors were properly padded. IV antibiotics tried by anesthesia team. Spinal anesthetic and abductor canal block had provided holding area. Mathis catheter was placed in sterile fashion the left thigh tent was then placed in left lower extremities then prepped and draped in usual sterile fashion. The left leg was elevated exsanguinated with use of an Esmarch and the tourniquet is placed at 3 and 50 mmHg. An anterior approach to the left knee was then performed through a longitudinal incision centered over the patella. Sharp dissection scalp through subcutaneous tissue down the extensor mechanism. A medial Arthrotomy incision was made. Some subperiosteal dissection was carried out medially. The fat pad was dissected from Neath patella tendon. Lateral patellofemoral ligament was released. Patella subluxated laterally and the knee was flexed. The osteophytes taken on distal femur. The ACL and PCL were then released from distal femur the tibia subluxated anteriorly. I did place a towel clip over the tibial tubercle and the patella tendon as there were signs of early signs of it stripping off of the tubercle area. At this was left throughout the case until left cemented knee. Attention drawn the tibia. Medial tibial eminence was resected. Intramedullary canal was entered. I reamed up to a size 13 and got good fit. The 13 reamer was left in place and the IM cutting guide was placed to take about a millimeter off the most deficient aspect medial tibial plateau. The tibia sized to a size 71. We tried to maximize coverage. We then prepared the tibia for a 71 tray with a 5 mm offset and small cruciate wing. We did place the implant. It was fairly tight so we elected to downsize the stem to a size 12. This was downsized from the initial reaming to a 13. Tray was assembled and fit nicely. Attention drawn the femur. The distal femur there is a sharp drop with intramedullary canal was suction. A left 5 degree valgus cutting guide was placed. This femoral cutting block was pinned in place. This femoral cut was made to take an additional 3 mm of bone off distal femur. The femur was then sized to a size 65. The size exactly was 65. The AP cutting block was pinned parallel to the epicondylar axis which was 4 degrees of external rotation. Anterior cut, anterior chamfer, posterior cut, posterior chamfer cuts were made for the box cutting guide was placed in just s light lateral and the box cut was made. The knee was flexed. The remnants of the medial and lateral menisci were excised with the osteophytes taken off the posterior aspect of femur. A trial femoral component was placed. The tibial tray was placed. We then trialed the knee and the 10 mm insert fit most properly. Pain potentials then drawn the patella. The patella cleaned of all soft tissues. Patella thickness measured 21 mm in thickness was cut down to 14. Was sized to a size 28 patella. The lug holes were drilled for the 28 patella. The lateral osteophytes removed. Patella button was placed. Knee was taken through range of motion and the patella tracked nicely with no thumbs test. Attention drawn to placing permanent components. Nupathe all trial components were removed. Bone plug was placed in this femur limit blood loss. Double batch Palacos G cement was mixed. I did add an additional gram of vancomycin due to her morbid obesity. A size 65 "stabilized femoral component, size 71 tibial tray with the 12 mm x 80 mm offset stem extension and a small cruciate wing, 10 mm pro stabilized polyethylene insert, and a 28 x 8 all poly patella then cemented in place. Knee was brought out in full extension till cement hardened. Final cement check was then performed. Pericapsular tissues were injected with total 100 cc of combination of 20 cc Exparel, 30 cc normal saline, 50 cc of quarter percent Marcaine with epinephrine. Patient did receive 1 g tranexamic acid. The tourniquet was let down for final tourniquet time of 90 minutes. Hemostasis surgeries electroca utery. Extensor mechanism closed with combination 1 PDS suture #1 Vicryl suture in a [id number] fashion. Extensor mechanism checked found to be intact and the subtenons tissue then closed with 2 Dexon suture in buried interrupted fashion skin was closed skin marcelo. Leg was then cleaned and dried and sterile dressed with Xeroform, 4 fours, sterile cast padding, ABD pad, sterile Abe bandage were applied. The patient then transferred to the recovery in stable condition. Patient tolerated procedure well and there were no complications. John Burgos, my physician human resources benefits assistant, was present for the entire procedure. His assistance was essential and required for appropriate patient positioning, prepping and draping, surgical exposure, performing the technical details of the operation, placement the implants, closure of the wound, and placement of the sterile bandage. I attest to the content of the Intraoperative Record and any orders documented therein. Any exceptions are noted below.
--- NOTE | 2022-11-12 14:13 | Anesthesiology Progress Note ---
Date of Service November 12, 2022 Anesthesia Post Procedure Vital Signs Vital Signs: Temp Pulse Pulse Resp BP Pulse Ox O2 Del Method 11/12/22 14:00 93 H 20 136/83 95 Room Air 11/12/22 13:50 88 16 141/77 H 93 Room Air 11/12/22 13:40 36.3 C L 90 22 152/85 H 98 Oxymask 11/12/22 09:13 36.8 C 72 20 129/69 95 Room Air 11/12/22 08:40 Room Air O2 Flow Rate 11/12/22 14:00 11/12/22 13:50 11/12/22 13:40 5 11/12/22 09:13 11/12/22 08:40 Transfer of Care Handoff Completed per policy Notes Mental Status: alert / awake / arousable Patient Amnestic to Procedure: Yes Nausea / Vomiting: adequately controlled Pain: adequately controlled Airway Patency, RR, SpO2: stable & adequate BP & HR: stable & adequate Hydration State: stable & adequate Neuraxial Anesthesia: was administered and sensory block is resolving Anesthetic Complications: no major complications apparent
--- NOTE | 2022-11-12 14:16 | XRay Report ---
LEFT KNEE 2 VIEWS History: Left total knee arthroplasty. Degenerative arthritis. Postop. FINDINGS: The patient is status post a left total knee arthroplasty. The hardware is intact. No fract ure or dislocation. Skin marcelo are in place. IMPRESSION: Left total knee arthroplasty. No evidence for hardware complication. ACT 112: Negative or not required by law. Electronically signed by: Jomar Mccauley M.D. 11/12/2022 2:15 PM
[2022-11-12] MEDS ORDERED: diphenhydrAMINE Capsule 25 MG CAP PO PRN (14:45)
[2022-11-12] MEDS ORDERED: METOCLOPRAMIDE HCL INJ 5 MG/ML 2 ML VIAL IV PRN (14:45)
[2022-11-12] MEDS ORDERED: HYDROmorphone INJ 0.5 MG/0.5 ML SYR IV PRN (14:45)
[2022-11-12] MEDS ORDERED: ALUMINUM/MAGNESIUM SUSP 30 ML UDC PO PRN (14:45)
[2022-11-12] MEDS ORDERED: NALOXONE HCL 0.4 MG/1 ML VIAL/CARP IV PRN (14:45)
[2022-11-12] MEDS ORDERED: bisacodyL 10 MG SUPP PR PRN (14:45)
[2022-11-12] MEDS ORDERED: MAGNESIUM HYDROXIDE SUSP 30 ML UDC PO PRN (14:45)
[2022-11-12] MEDS: SODIUM CHLORIDE 0.9% 1000ML 1,000 ML IV SCH (14:51)
--- NOTE | 2022-11-12 15:07 | Anesthesiology Progress Note ---
Date of Service November 12, 2022 Anesthesia Post Procedure Vital Signs Vital Signs: Temp Pulse Pulse Resp BP Pulse Ox O2 Del Method 11/12/22 14:45 36.5 C 86 18 122/70 98 Room Air 11/12/22 14:20 92 H 19 129/68 97 Room Air 11/12/22 14:10 36.5 C 89 15 115/99 96 Room Air 11/12/22 14:00 93 H 20 136/83 95 Room Air 11/12/22 13:50 88 16 141/77 H 93 Room Air 11/12/22 13:40 36.3 C L 90 22 152/85 H 98 Oxymask 11/12/22 09:13 36.8 C 72 20 129/69 95 Room Air 11/12/22 08:40 Room Air O2 Flow Rate 11/12/22 14:45 11/12/22 14:20 11/12/22 14:10 11/12/22 14:00 11/12/22 13:50 11/12/22 13:40 5 11/12/22 09:13 11/12/22 08:40 Pain Intensity Back: Pain Intensity: 4 Transfer of Care Handoff Completed per policy Notes Mental Status: alert / awake / arousable Patient Amnestic to Procedure: Yes Nausea / Vomiting: adequately controlled Pain: adequately controlled Airway Patency, RR, SpO2: stable & adequate BP & HR: stable & adequate Hydration State: stable & adequate Neuraxial Anesthesia: was administered and sensory block is resolving Anesthetic Complications: no major complications apparent and Pt Satisfied with anesthetic care
[2022-11-12] MEDS: ACETAMINOPHEN 500 MG TAB PO SCH ×2 (15:33→21:00)
[2022-11-12] MEDS: KETOROLAC 30 MG/ML VIAL IV SCH ×2 (15:33→21:00)
[2022-11-12] MEDS: Scopolamine CHECK PATCH PLACEMENT SCH (15:34)
[2022-11-12] MEDS: ASCORBIC ACID 500 MG TAB PO SCH (17:02)
[2022-11-12] MEDS: ceFAZolin 2000MG 2,000 MG/15 ML SYR IV SCH (19:41)
[2022-11-12] MEDS ORDERED: TRANEXAMIC ACID / 0.7% NACL 1,000 MG/100 ML BAG IV SCH (19:45)
[2022-11-12] MEDS: ASPIRIN 81 MG ECTAB PO SCH (20:59)
[2022-11-12] MEDS: DOCUSATE SODIUM 100 MG CAP PO SCH (21:00)
[2022-11-12] MEDS ORDERED: SENNA 8.6 MG TAB PO SCH (21:00)
[2022-11-12] MEDS: PREGABALIN 50 MG CAP PO SCH (21:06)
[2022-11-12] MEDS: SENNA 8.6 MG TAB PO SCH (22:48)
[2022-11-13] MEDS: SODIUM CHLORIDE 0.9% 1000ML 1,000 ML IV SCH (00:56)
[2022-11-13] MEDS: Scopolamine CHECK PATCH PLACEMENT SCH ×2 (00:57→07:50)
[2022-11-13] MEDS: oxyCODONE HCL IR 5 MG TAB (IMMEDIATE RELEASE) PO PRN ×2 (00:59→07:49)
[2022-11-13] MEDS: KETOROLAC 30 MG/ML VIAL IV SCH ×3 (03:17→08:52)
[2022-11-13] MEDS: ceFAZolin 2000MG 2,000 MG/15 ML SYR IV SCH (03:18)
[2022-11-13] MEDS ORDERED: LEVOTHYROXINE SODIUM 175 MCG TABLET PO SCH (06:30)
[2022-11-13 07:14] LABS: Hematocrit (blood only) 28.9 % (37.0-47.0); Hemoglobin 9.4 g/dl (12.0-16.0); Mean Corpuscular Hemoglobin 27.5 pg (25.0-34.0); Mean Corpuscular Hgb Conc 32.5 g/dL (32.0-36.0); Mean Corpuscular Volume 84.5 fL (80.0-100.0); Mean Platelet Volume 9.8 fL (9.4-12.4); Platelet Count 223 K/uL (130-400); RDW Coefficient of Variation 14.7 % (11.5-14.5); RDW Standard Deviation 45.4 fL (36.4-46.3); Red Blood Count 3.42 M/uL (4.20-5.40); White Blood Count 5.67 K/ul (4.8-10.8)
[2022-11-13 07:33] LABS: BUN Creatinine Ratio 18.4 (10-20); Calcium 7.7 mg/dl (8.6-10.3); Creatinine Clr Calc Pharmacy 88.2 ml/min; Est GFR (African American) 83.3 ml/min; Est GFR (Non-African American) 71.9 ml/min
[2022-11-13] MEDS ORDERED: dexAMETHasone 10 MG in SYRINGE 0 ML IV SCH (08:00)
[2022-11-13] MEDS: ASCORBIC ACID 500 MG TAB PO SCH (08:42)
[2022-11-13] MEDS: PREGABALIN 50 MG CAP PO SCH (08:42)
[2022-11-13] MEDS: SENNA 8.6 MG TAB PO SCH (08:42)
[2022-11-13] MEDS: DOCUSATE SODIUM 100 MG CAP PO SCH (08:42)
[2022-11-13] MEDS: ASPIRIN 81 MG ECTAB PO SCH (08:43)
[2022-11-13] MEDS: ACETAMINOPHEN 500 MG TAB PO SCH (08:43)
[2022-11-13] MEDS ORDERED: FLUoxetine HCL 20 MG CAP PO SCH (09:00)
[2022-11-13] MEDS ORDERED: lisinopril 20 MG TAB PO SCH (09:00)
[2022-11-13] MEDS ORDERED: MULTIVITAMIN TAB PO SCH ×2 (09:00)
[2022-11-13] MEDS ORDERED: CHOLECALCIFEROL 5,000 UNITS 125 MCG TAB PO SCH (09:00)
--- NOTE | 2022-11-13 09:23 | Orthopedic Progress Note ---
Date of Service November 13, 2022 Assessment & Plan (1) Status post left knee replacement: 1. PT OT. Weight-bear as tolerated. Left total knee protocol. 2. Pain control. I do not well with current pain regimen. 3. DVT prophylaxis including thigh-high teds SCDs and aspirin twice a day. 4. Disposition. Plan to discharge to home with home health later today after therapy. Subjective . 61-year-old female postop day 1 from left knee replacement. She is doing well well. Pain is controlled. No chest pain or shortness of breath. Not feeling dizzy or lightheaded. Hoping to go home today. Review of Systems All systems reviewed & are unremarkable except as noted in HPI & below. Physical Exam . Physical examination was a pleasant middle-age female. Sitting up in her bedside chair looks comfortable. Examination of the left knee reveals a dressing clean dry and intact. She can dorsiflex and plantarflex her foot appropriately. She got brisk refill. She can do a good straight leg raise. Respiratory normal respiratory effort, lungs clear to auscultation Results & Data Results & Data Laboratory Results . Labs reveal stable hemoglobin hematocrit. Electrolytes are stable. Diagnostic Findings . PG Care Time/CCT Total # of Minutes Spent Total Time Spent with Patient: Total time spent is greater than 50% in coordination of care (as documented) at patient's floor/unit and/or counseling patient: Coding Level of Care Code 79692 Post Operative Follow-Up Diagnoses Status post left knee replacement Z96.652
== END 2022-11-13 11:29 | disposition home health service (06) ==
LOC: 3E 08:15 → ASU 08:15